=== PATIENT | male | born 1970 | race Caucasian/White ===

== ENCOUNTER → 2025-01-22 | Outpatient (CLI) | payer BC, SELFPAY ==
[2025-01-22 15:50] LABS: Alcohol, Urine Negative (Negative); Amphetamine/Methamp Scrn,U Negative (Negative); Barbiturate Screen,Urine Negative (Negative); Benzodiazepines Screen,Urine Negative (Negative); Benzoylecgonine Screen, Ur Negative (Negative); Fentanyl Screen,Urine Negative (Negative); Opiate Screen,Urine Positive (Negative); THC Screen,Urine Positive (Negative)
== END | disposition home or self-care (01) ==
LOC: SLDO 14:28
PROVIDERS: PCP Specialist; Referring Provider Specialist; Visit Provider Specialist
DX: Z79.891 Long term (current) use of opiate analgesic (principal)
CPT/HCPCS: 80307; 80320; G0480

== ENCOUNTER 2025-03-21 08:30 | Outpatient (RCR) | payer BC, SELFPAY ==
--- NOTE | 2025-02-27 08:45 | PTNOTE_ITS ---
PT OP Initial Eval Patient Information Outpatient Physical Therapy Treatment Date: 02/27/25 Visit Reasons: LEFT KNEE SURGERY Medical Diagnosis: z96.659 Treatment Dx #1: Left Knee Pain Treatment Dx #2: Left Knee Mobility Deficits Start of Care: 02/27/25 Date of Onset: 02/06/25 Smoking Status Smoking Status: Current every day smoker (yes) Cessation Counseling Provided: EMILY was advised that quitting smoking is the single most important factor to protect the health of themselves and their family. Discussed the benefits of quitting smoking with patient. Encouraged patient to quit smoking and provided Cessation assistance materials and resources. Tobacco Use: Cigarette Years smoked: 20 Are you interested in quitting?: No Would you like additional Smoking Cessation Counseling?: No Initial Assessment Subjective: Pt is a 55 y/o male s/p left TKA 02/06/[address] Fall. Pt still has pain (7/10) with activities. Pt has limitation with sitting, standing, chores, balance, self care, cooking, cleaning, walking, and performing recreational activities Objective: Left Knee AROM: -8 deg to 82 deg Left Knee PROM: -6 deg to 85 deg Left Knee MMTs: grossly 3-/5 Left Hip MMTs: grossly 3-/5 SLS: NT Assessment: Pt demonstrate left knee mobility and strength deficits s/p TKA leading to difficulty with ADLs. Pt will benefit from physical therapy to increase ROM, strength, and work on ambulation Short Term and Custodial Goals 1) Increase left knee flexion AROM to 115 deg in 12 wks to be able to perform work duties 2) Decrease knee pain to 2/10 in 12 wks to be able to walk more than 30 mins 3) Increase left knee MMTs grossly to 4/5 in 12 wks to be able to perform stairs and steps 4) Increase left hip MMTs grossly to 4-/5 in 12 wks to be able to perform recreational activities 5) Indep with HEP Treatment Plan 1) Manual Therapy 2) Therapeutic Activities 3) Therapeutic Exercises 4) Modalities (ice, heat) 5) Balance Training 6) Gait Training Frequency and Duration: 2 x wk for 12 wks Certification Dates: 02/27/25 to 05/29/25 Procedure Charges OP PT Eval Mod Complex 30 minutes: Yes
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
--- NOTE | 2025-03-08 08:58 | PT.ODAYNRPT ---
PT Outpatient Daily Note OP Daily Note Outpatient Physical Therapy Treatment Date: 03/08/25 Visit Reasons: LEFT KNEE SURGERY Subjective: Pt reports knee is doing ok, still feels stiff and painful. Objective: Please see flow sheet for ther ex list. Assessment: Pt tolerated interventions with minimal pain, requires short rest breaks in between exercise reps. Plan: Continue with pOC, progress per post op protocol. Length of Time (minutes) of Treatment: 30 Minutes Procedure Charges Therapeutic Exercise 30 minutes: Yes
--- NOTE | 2025-03-13 10:54 | PT.ODAYNRPT ---
PT Outpatient Daily Note OP Daily Note Outpatient Physical Therapy Treatment Date: 03/13/25 Visit Reasons: LEFT KNEE SURGERY Subjective: Pt's knee is better. Pt can bend more with less pain. Pt still has stiffness after prolonged sitting. Objective: Please see flow chart for list of ther ex performed Assessment: slowly progressing with knee flexion AROM. slight guarding with knee flexion stretching Plan: Continue with PT Length of Time (minutes) of Treatment: 30 Minutes Procedure Charges Therapeutic Exercise 30 minutes: Yes
--- NOTE | 2025-03-15 12:57 | PT.ODAYNRPT ---
PT Outpatient Daily Note OP Daily Note Outpatient Physical Therapy Treatment Date: 03/15/25 Visit Reasons: LEFT KNEE SURGERY Subjective: Pt's knee feels better. Pt notice he can bend his knee with less pain. Walking is also improving Objective: Left knee flexion AROM: 100 deg//103 deg Assessment: improving with knee flexion AROM with less pain reported. Less guarding with passive stretching today Plan: Continue with PT Length of Time (minutes) of Treatment: 30 Minutes Procedure Charges Therapeutic Exercise 30 minutes: Yes
--- NOTE | 2025-03-21 09:31 | PT.ODAYNRPT ---
PT Outpatient Daily Note OP Daily Note Outpatient Physical Therapy Treatment Date: 03/21/25 Visit Reasons: LEFT KNEE SURGERY Subjective: Pt's knee is better but is very sore. Pt stated that he bend knee more with less pain Objective: Please see flow chart for list of ther ex performed Assessment: tolerate exercises with minimal pain and decrease reps and closed chain exercises due to reported pain and soreness prior to session Plan: Continue with PT Length of Time (minutes) of Treatment: 30 Minutes Procedure Charges Therapeutic Exercise 30 minutes: Yes
== END 2025-03-21 23:59 | disposition home or self-care (01) ==
LOC: CPTX 08:30
PROVIDERS: PCP Orthopaedic Surgery; Referring Provider Orthopaedic Surgery; Visit Provider Orthopaedic Surgery
DX: M25.562 Pain in left knee (principal); R26.2 Difficulty in walking, not elsewhere classified; R26.89 Other abnormalities of gait and mobility; Z96.652 Presence of left artificial knee joint; Z71.6 Tobacco abuse counseling; F17.210 Nicotine dependence, cigarettes, uncomplicated
CPT/HCPCS: 97110; 97140; 97162

== ENCOUNTER 2025-04-05 08:30 | Outpatient (RCR) | payer BC, SELFPAY ==
--- NOTE | 2025-03-23 09:08 | PT.ODAYNRPT ---
PT Outpatient Daily Note OP Daily Note Outpatient Physical Therapy Treatment Date: 03/23/25 Visit Reasons: left knee surgery Subjective: Pt's knee is not as stiff and can bend more with less pain. Objective: Left Knee Flexion AROM: 108//111 deg Assessment: Pt is progressing with knee flexion AROM. Pt instructed to continue knee flexion stretching and lunges at home to maintain gained ROM Plan: Continue with PT Length of Time (minutes) of Treatment: 30 Minutes Procedure Charges Therapeutic Exercise 30 minutes: Yes
--- NOTE | 2025-03-27 09:09 | PT.ODAYNRPT ---
PT Outpatient Daily Note OP Daily Note Outpatient Physical Therapy Treatment Date: 03/27/25 Visit Reasons: left knee surgery Subjective: Pt's knee is better. Pt still has moment where it feels stiff and painful Objective: Please see flow chart for list of ther ex performed Assessment: progressing with knee flexion AROM with less pain. Post ice helped with pain and soreness Plan: Continue with PT Length of Time (minutes) of Treatment: 30 Minutes Procedure Charges Therapeutic Exercise 30 minutes: Yes
--- NOTE | 2025-03-29 08:41 | PT.ODAYNRPT ---
PT Outpatient Daily Note OP Daily Note Outpatient Physical Therapy Treatment Date: 03/29/25 Visit Reasons: left knee surgery Subjective: Pt's knee feels better. Pt will be seeing surgeon tomorrow and feels ready to return back to work on wednesday Objective: Please see flow chart for list of ther ex performed Assessment: continues to progress with knee flexion AROM; less guarding to day with knee flexion stretching Plan: Continue with PT Length of Time (minutes) of Treatment: 30 Minutes Procedure Charges Therapeutic Exercise 30 minutes: Yes
--- NOTE | 2025-04-03 10:32 | PT.ODAYNRPT ---
PT Outpatient Daily Note OP Daily Note Outpatient Physical Therapy Treatment Date: 04/03/25 Visit Reasons: left knee surgery Subjective: Pt recently seen surgeon. Surgeon will release him back to work next week. Overall patient still has pain and swelling but needs to return to work for job opportunity Objective: Please see flow chart for list of ther ex performed Assessment: continue to slowly progress with knee flexion AROM and less guarded with stretches. Pt had difficulty with side step and monster walk using the blue TB, however, able to complete instructed reps Plan: Continue with PT Length of Time (minutes) of Treatment: 30 Minutes Procedure Charges Therapeutic Exercise 30 minutes: Yes
--- NOTE | 2025-04-05 09:11 | PT.ODS1RPT ---
PT OP Progress/Discharge Note Date of Service: 04/05/25 Progress Note/DC Note Progress Note/Discharge Note: DC Note Patient Information Visit Reasons: left knee surgery Medical Diagnosis: z96.659 Treatment Dx #1: Left Knee Mobility Deficits Treatment Dx #2: Left Knee Pain Service Discharge Date: 04/05/25 Status Subjective: Pt's knee is feeling good and better. Pt is set to return back to work next week and will like to be release from care. Pt has been able to stand, walk, perform chores, steps, and recreational activities with minimal limitation. Objective: Left Knee AROM: -6 deg to 115 deg Left PROM: -6 deg to 120 deg Left Knee MMTs: grossly 4/5 Left Hip MMTs: grossly 3+/5 SLS: 10 sec Assessment: Pt demonstrate functional left knee mobility and strength allowing him to resume ADLs, ambulate, and perform recreational activities with minimal limitation. Pt has met most goals in therapy. Pt d/c from care per Pt's request and will instructed on HEP last session to maintain overall mobility. Pt performed all exercises safely, thank you for your referrals. Plan: D/C home with HEP and follow up with MD HINES Procedure Charges Therapeutic Exercise 30 minutes: Yes
== END 2025-04-21 23:59 | disposition home or self-care (01) ==
LOC: CPTX 08:30
PROVIDERS: PCP Orthopaedic Surgery; Referring Provider Orthopaedic Surgery; Visit Provider Orthopaedic Surgery
DX: M25.562 Pain in left knee (principal); R26.2 Difficulty in walking, not elsewhere classified; R26.89 Other abnormalities of gait and mobility; Z96.652 Presence of left artificial knee joint
CPT/HCPCS: 97110

== ENCOUNTER → 2025-08-29 | Outpatient (CLI) | payer BC, SELFPAY ==
[2025-08-29 16:41] LABS: Amphetamine/Methamp Scrn,U Negative (Negative); Barbiturate Screen,Urine Negative (Negative); Benzodiazepines Screen,Urine Negative (Negative); Benzoylecgonine Screen, Ur Negative (Negative); Fentanyl Screen,Urine Negative (Negative); Opiate Screen,Urine Positive (Negative); THC Screen,Urine Negative (Negative)
== END | disposition home or self-care (01) ==
LOC: SLDO 14:52
PROVIDERS: PCP Specialist; Referring Provider Specialist; Visit Provider Specialist
DX: Z79.891 Long term (current) use of opiate analgesic (principal)
CPT/HCPCS: 80307